=== PATIENT | female | born 1995 | race Caucasian/White ===

== ENCOUNTER 2018-11-26 04:15 | Emergency (ER) | payer SELFPAY ==
[~2018-11-26] VITALS: Ht 162.6 cm; Wt 73.0 kg
[2018-11-26 04:19] VITALS: BP 116/80; Ht 162.6 cm; Wt 73.0 kg
== END 2018-11-26 04:39 | disposition home or self-care (01) ==
LOC: ED 04:15
DX: K02.9 Dental caries, unspecified (principal)

== ENCOUNTER 2020-01-24 21:33 | Emergency (ER) | payer SELFPAY ==
[~2020-01-24] VITALS: Ht 167.6 cm; Wt 82.1 kg
[2020-01-24 21:43] VITALS: Ht 167.6 cm; Wt 82.1 kg
[2020-01-24 23:41] VITALS: BP 120/79
== END 2020-01-24 23:41 | disposition home or self-care (01) ==
LOC: ED 21:33
DX: R07.89 Other chest pain (principal); M25.512 Pain in left shoulder
CPT/HCPCS: J1885